=== PATIENT | female | born 1960 | race Caucasian/White ===

== ENCOUNTER 2017-04-22 07:19 | Day surgery (SDC) | payer OTHER ==
[2017-04-21 10:44] VITALS: BMI 26.4
[2017-04-22] MEDS ORDERED: BUPIVACAINE HCL/PF 2.5 MG/ML - 30 ML VIAL IJ ONE (09:20)
[2017-04-22] MEDS ORDERED: EPINEPHrine 1:1,000 1 MG/1 ML - 30ML VIAL (INJECTION) ONE (09:20)
--- NOTE | 2017-04-22 09:29 | HP ---
History & Physical Update - History History: No Change - Physical Physical: No Change - Assessment Assessment: No Change - Plan Plan: No Change (Here today for elective repair of her left knee pain. Planned procedure is LEFT knee arthroscopy and removal of loose bodies. Initial H&P is located in her paper chart)
[2017-04-22] MEDS ORDERED: methylPREDNISolone ACET (DEPO) 40 MG/1 ML VIAL ONE (11:41)
[2017-04-22] MEDS ORDERED: BUPIVACAINE HCL/PF 0.25% (2.5MG/ML) 10 ML VIAL IJ ONE (11:47)
[2017-04-22] MEDS ORDERED: methylPREDNISolone ACET (DEPO) 40 MG/1 ML VIAL NR ONE (11:47)
--- NOTE | 2017-04-22 12:02 | OP ---
Operative Note - Note: Operative Date: 04/22/17 Pre-Operative Diagnosis: Loose bodies left knee. Operation: Surgical arthroscopy left knee Findings: 1. Chondromalacia patellofemoral joint 2. Degenerative ACL Tourniquet Pressure: 250mmHg. Tourniquet Time: 29 mins. Post-Operative Diagnosis: Other (As above) Surgeon: Richie Azul Anesthesiologist/MEDIA MARKETING MANAGER: Issac Ramirez Anesthesia: Spinal Estimated Blood Loss (mls): 0 Fluid Volume Replaced (mls): 900 Operative Report Dictated: Yes
[2017-04-22] MEDS ORDERED: PROMETHAZINE HCL 25 MG/1 ML VIAL IVPB PRN (12:16)
[2017-04-22] MEDS ORDERED: oxyCODONE HCL 5 MG TABLET PO PRN (12:16)
[2017-04-22] MEDS ORDERED: ONDANSETRON 4 MG/2 ML VIAL IVPUSH PRN (12:16)
[2017-04-22] MEDS ORDERED: LACTATED RINGERS SOLUTION 1,000 ML IV SCH (12:30)
[2017-04-22] MEDS ORDERED: ONDANSETRON 4 MG/2 ML VIAL ONE (12:43)
[2017-04-22] MEDS ORDERED: oxyCODONE HCL 5 MG TABLET ONE (13:14)
[2017-04-22 14:58] VITALS: BP 110/70; PULSE 66; TEMP 97.8
--- NOTE | 2017-04-24 15:26 | OP ---
DATE OF OPERATION: 04/22/2017 SURGEON: Richie Azul MD AUTOMATION CLERK: None. PREOPERATIVE DIAGNOSIS: Loose bodies, left knee. POSTOPERATIVE DIAGNOSES: 1. Chondromalacia, patellofemoral joint. 2. Degenerative anterior cruciate ligament. SURGICAL PROCEDURE: 1. Surgical arthroscopy, left knee. 2. Debridement and chondroplasty, patellofemoral joint. ANESTHESIA: Spinal and sedation. POSITION: Supine. INCISION: Standard anteromedial and anterolateral arthroscopy portals. ESTIMATED BLOOD LOSS: Minimal. INTRAVENOUS FLUID: 900 mL crystalloid. SPECIMENS: None. DRAINS: None. COMPLICATIONS: None. URINE OUTPUT: None. BACTERIOLOGY: None. TRANSFUSIONS: None. CLOSURE: 3-0 nylon. INDICATIONS: The patient is a 56-year-old female who is indicated for surgical arthroscopy of the left knee with debridement of loose bodies in order to improve motion and mobilization, to prevent the complications associated with a sedentary lifestyle, and to minimize onset of arthritis secondary to third body wear. Patient was identified in the holding area by her arm band. A long discussion was held with the patient in the presence of her son regarding the risks, benefits, and alternatives of the above-named procedure. Risks include but are not limited to : Pain, bleeding, infection, damage to the surrounding structures (including nerves, blood vessels, skin, ligaments, tendons, and bone), wound complications, need for further surgery, blood clots, myocardial infarction, pulmonary embolism, anesthesia complications, compartment syndrome, limb loss, limp, loss of function, progression of arthritis, and . Benefits as mentioned above. Alternatives include no surgery. All questions were answered. The patient understood and agreed to the procedure. Informed consent was obtained, witnessed, and verified. The patient 's correct operative limb--that of the left lower extremity--was marked, and the patient was taken to the operating room after being seen by the anesthesia nursing staff. PROCEDURE: The patient was brought in to the operating room, placed on the OR table, and secured with a safety strap. Consent and the operative site was again verified with the patient and nursing and anesthesia staff. Anesthesia was then administered without complications, including IV antibiotics. Timeout was done, led by me, the attending surgeon. The patient was positioned with all bony prominences well padded, and the tourniquet was placed proximally on the left thigh and set to 250 mmHg. The distal thigh was then secured in a leg bah. The operative site was then prepped and draped in standard sterile fashion. A timeout was again done. The limb was exsanguinated using an Esmarch, the tourniquet was inflated, and the case began. Standard anterolateral arthroscopy portal was made using an 11 blade. Next, the trocar was introduced into the middle of the knee and then into the suprapatellar pouch as the knee was fully extended. With the arthroscope in place, the knee was insufflated with normal saline solution containing epinephrine to aid with hemostasis. It was immediately obvious that there was marked chondromalacia of the patellofemoral joint. The sclerotic bony surface of the articular patella could be visualized. There were numerous fronds of degenerative cartilage lining the margin of the patella. The trochlear sulcus was also degenerative. The arthroscope was then delivered into the medial gutter of the knee, where no loose bodies were seen, and then into the medial joint space, where once again no loose bodies were seen. Grade 2 chondromalacia of the medial femoral condyle was identified. At this point in time, a standard medial arthroscopy portal was triangulated using an 18-gauge needle, and then an 11 blade for the incision. A trocar was used to facilitate entry into the medial joint space. There was no medial meniscus tear visualized. Next, the arthroscope was moved to the middle of the knee, where the ACL was found to be degenerative. A standard 3.5-mm shaver was used to debride any loose soft tissue fibers that were found floating within the middle of the knee. Again, no loose bodies were seen. Next, the arthroscope was transferred into the lateral compartment of the knee, where upon the cartilage of the lateral compartment was intact on both sides of the joint, as was the meniscus. Once again no loose bodies were seen. It should be stated that the popliteal fossa was repeatedly palpated so as to dislodge and push any loose bodies into the visual field during the arthroscopy, but no loose bodies were actively seen. The arthroscope was then delivered into the lateral gutter of the knee, where once again no loose bodies were seen, and finally back up to the suprapatellar pouch. A 3.5-mm shaver was used to gently debride the fronds and fibrillations of degenerative cartilage that were seen within the patellofemoral joint. Great care was taken not to debride any healthy-looking articular cartilage. The knee was thoroughly irrigated with 3 to 4 L of fluid. Hemostasis was assured throughout the case. Inflow suction was then clamped and outflow suction was used to drain the knee. All arthroscopy instrumentation was then removed. A 5 mL injection consisting of 4 mL of 0.25% Marcaine and 1 mL of Depo-Medrol 40 mg/mL was injected into the lateral compartment of the left knee. The wound was closed primarily using 3-0 nylon suture in [id number] fashion. A sterile compressive dressing was applied. Tourniquet was then released at a final time of 29 minutes. The sponge and needle counts were correct at the end of the case. I, the attending surgeon, was present and scrubbed throughout the case. The patient was then transferred without incident or complications to the recovery room in stable condition, having tolerated the procedure well. MD APOLONIA [id number] [email or web address]
== END 2017-04-22 15:05 | disposition home or self-care (01) ==
LOC: FASU 07:19
PROVIDERS: ATTEND Orthopaedic Surgery Adult Reconstructive Orthopaedic Surgery
PROC: 0SBD4ZZ Excision of Left Knee Joint, Percutaneous Endoscopic Approach (ICD-10-PCS; principal; 2017-04-22 11:22)
DX: M22.42 Chondromalacia patellae, left knee (principal); M23.612 Other spontaneous disruption of anterior cruciate ligament of left knee
CPT/HCPCS: 94760

== ENCOUNTER 2019-03-02 05:09 | Emergency (ER) | payer OTHER ==
[2019-03-02] MEDS ORDERED: KETOROLAC TROMETHAMINE 15 MG/ML VIAL IVPUSH ONE (05:37)
[2019-03-02] MEDS ORDERED: SODIUM CHLORIDE 1,000 ML IV STA (05:37)
[2019-03-02] MEDS ORDERED: ACETAMINOPHEN 1000 MG/100 ML VIAL (NON FORMULARY) IVPB ONE (05:38)
[2019-03-02 05:43] VITALS: BMI 34.7
--- NOTE | 2019-03-02 05:53 | PDOC ---
History of Present Illness - General Stated Complaint: RIGHT LOWER BACK PAIN Time Seen by Provider: 03/02/19 05:18 History Source: Patient Exam Limitations: No Limitations - History of Present Illness Initial Comments: Pt is a 58 yo F, with no significant PMH, who is presenting with complaints of R groin and R flank pain x5 days. Pt states her symptoms started in her R groin , and has been intermittent, now radiating towards the R flank. Pt has experienced nausea, but no vomiting. Pt has taken motrin and ibuprofen with minimal relief. Pt denies any fevers/chills, headache, vision changes, syncope, chest pain, palpitations, SOB, vomiting, urinary symptoms, diarrhea/constipation , or leg swelling. Allergies: NKDA PCP: Dr. Navarrete Social: Pt denies any cigarette, alcohol, or drug use. Pt denies any recent travel or sick contacts. Surgical: C-sections Family: no relevant history. 03/02/19 05:49 03/02/19 05:55 Past History - Travel Traveled outside of the country in the last 30 days: No Close contact w/someone who was outside of country & ill: No - Past Medical History Allergies/Adverse Reactions: Allergies Allergy/AdvReac Type Severity Reaction Status Date / Time No Known Drug Allergies Allergy Verified 03/02/19 05:29 Home Medications: Ambulatory Orders NK [No Known Home Medication] 04/21/17 Anemia: No Asthma: No Cancer: No Cardiac Disorders: No CVA: No COPD: No CHF: No Dementia: No Diabetes: No GI Disorders: No Disorders: No HTN: No Hypercholesterolemia: Yes (NOT ON MEDS,MILD) Liver Disease: No Seizures: No Thyroid Disease: No - Surgical History Abdominal Surgery: No Appendectomy: No Cardiac Surgery: No Cholecystectomy: No Lung Surgery: No Neurologic Surgery: No Orthopedic Surgery: Yes - Psycho Social/Smoking Cessation Hx Smoking History: Never smoked Have you smoked in the past 12 months: No Hx Alcohol Use: No Drug/Substance Use Hx: No Substance Use Type: None Hx Substance Use Treatment: No Abd/GI Specific PMHX - Complaint Specific PMHX Colitis: No Diverticulitis: No Gall Bladder Disease: No GERD: No Hepatitis: No Irritable Bowel Synd (IBS): No Pancreatitis: No GI Ulcer Disease: No Review of Systems - Review of Systems Able to Perform ROS?: Yes Is the patient limited Nepali proficient: No Constitutional: Yes: Weight Stable. No: Chills, Diaphoresis, Fever, Loss of Appetite, Malaise, Weakness HEENTM: No: Recent change in vision, Nose Congestion, Throat Pain, Throat Swelling, Difficulty Swallowing Respiratory: No: Cough, Orthopnea, Shortness of Breath Cardiac (ROS): No: Chest Pain, Edema, Irregular Heart Rate, Lightheadedness, Palpitations, Syncope, Chest Tightness ABD/GI: Yes: See HPI, Nausea. No: Abdominal Distended, Constipated, Diarrhea, Poor Appetite, Poor Fluid Intake, Vomiting, Abdominal cramping : Yes: See HPI, Flank Pain. No: Burning, Dysuria, Frequency, Hematuria, Pain , Urgency Musculoskeletal: No: Back Pain, Muscle Pain, Muscle Weakness Integumentary: No: Rash Neurological: No: Headache, Numbness, Weakness, Unsteady Gait, Dizziness Psychiatric: No: Sleep Pattern Change, Change in Appetite Endocrine: No: Increased Urine, Change in Weight Hematologic/Lymphatic: No: Anemia, Blood Clots, Easy Bleeding, Easy Bruising All Other Systems: Reviewed and Negative *Physical Exam - Vital Signs Last Vital Signs Temp Pulse Resp BP Pulse Ox 98.4 F 92 H 16 186/102 H 99 03/02/19 05:32 03/02/19 05:32 03/02/19 05:32 03/02/19 05:32 03/02/19 05:32 - Physical Exam HTN, pt afebrile. Pt appears distressed, holding R flank, ambulating into ER with assistance. Obese body habitus. Pt alert and oriented x3. shipping lead person generally intact, muscular strength and sensation intact. No midline spinal tenderness, step-offs, or crepitus. Head normocephalic, atraumatic. Eyes PERRLA, EOMI. Oropharynx without erythema or exudates, no LAD b/l. No nasal congestion. Hearing intact. Clear heart sounds, S1/S2, no JVD, b/l pedal edema, or heart murmur. Clear lung sounds, no respiratory distress, wheezes, crackles, or accessory muscle use. No reproducible abdominal or CVA tenderness to palpation, no rebound, no guarding. Abdomen soft, non-distended, and with normoactive bowel sounds. Skin without jaundice or rash. 03/02/19 06:02 ED Treatment Course - LABORATORY CBC & Chemistry Diagram: 03/02/19 05:46 03/02/19 05:46 Medical Decision Making - Medical Decision Making Pt was seen at bedside, also will be seen by attending Dr. Doherty. Pt presenting with R groin and R flank pain. No reproducible tenderness on exam, less likely abdominal pathology such as appendicitis or MSK pain. Pt holding R flank, likely colic from nephrolithiasis. Will evaluate for infection, UTI, nephrolithiasis, colitis, diverticulitis. Provided 1 L IV NS, ofirmev, and 15 mg IV toradol for improvement of likely renal colic. Will continue to reassess pt and monitor for symptomatic improvement. 03/02/19 06:05 CBC generally WNL Ordered spiral CT 03/02/19 06:11 CMP WNL, kidney function normal Serum negative Pt taken for CT scan 03/02/19 06:41 UA and urine culture pending in lab. Pt pending CT and read Pt signed out to day team 03/02/19 06:48 Discharge - Discharge Information Problems reviewed: Yes Clinical Impression/Diagnosis: Right flank pain Condition: Stable - Follow up/Referral - Patient Discharge Instructions - Post Discharge Activity
[2019-03-02] MEDS ORDERED: ACETAMINOPHEN INJECTION 100 ML IVPB ONE (05:56)
[2019-03-02 05:58] LABS: BASO % 0.8 % (0-2.0); EOS % 2.5 % (0-4.5); HEMATOCRIT 45.3 % (32.4-45.2); HEMOGLOBIN 15.2 GM/dL (10.7-15.3); LYMPH % 34.5 % (8-40); MCH 28.9 pg (25.7-33.7); MCHC 33.5 g/dl (32.0-36.0); MEAN CELL VOLUME 86.4 fl (80-96); MEAN PLT VOLUME 8.3 fl (7.5-11.1); MONO % 7.8 % (3.8-10.2); NEUT % 54.4 % (42.8-82.8); PLATELET COUNT 262 K/MM3 (134-434); RBC 5.25 M/mm3 (3.60-5.2); RDW 13.7 % (11.6-15.6); WHITE BLOOD COUNT 7.4 K/mm3 (4.0-10.0)
[2019-03-02] MEDS ORDERED: KETOROLAC TROMETHAMINE 15 MG/ML VIAL ONE (05:58)
[2019-03-02 06:23] LABS: BILIRUBIN,TOTAL 0.4 mg/dL (0.2-1); BLOOD UREA NITROGEN 9.3 mg/dL (7-18); CALCIUM 9.3 mg/dL (8.5-10.1); CREATININE 0.8 mg/dL (0.55-1.3); POTASSIUM 4.2 mmol/L (3.5-5.1); TOT PROT 7.6 g/dl (6.4-8.2)
--- NOTE | 2019-03-02 06:50 | PDOC ---
Attending Attestation - Resident Resident Name: Arlene Sue - ED Attending Attestation I have performed the following: I have examined & evaluated the patient, The case was reviewed & discussed with the resident, I agree w/resident's findings & plan, Exceptions are as noted - HPI HPI: 03/02/19 07:34 See resident HPI - Physicial Exam PE: 03/02/19 07:34 Agree with exam as documented by resident - Medical Decision Making 03/02/19 07:34 Hx highly suspicious for nephrolithiasis f/u labs, ua, spiral ct analgesia dispo per clinical course
[2019-03-02 07:03] LABS: URINE APPEARANCE CLEAR; URINE BILIRUBIN NEGATIVE (NEGATIVE); URINE COLOR YELLOW; URINE GLUCOSE (UA) NEGATIVE (NEGATIVE); URINE KETONE NEGATIVE (NEGATIVE); URINE LEUK ESTERASE NEGATIVE (NEGATIVE); URINE NITRITE NEGATIVE (NEGATIVE); URINE PROTEIN NEGATIVE (NEGATIVE); URINE UROBILINOGEN 0.2 mg/dL (0.2-1.0)
--- NOTE | 2019-03-02 07:10 | PDOC ---
ED Treatment Course - LABORATORY CBC & Chemistry Diagram: 03/02/19 05:46 03/02/19 05:46 - Medications Given in the ED: ED Medications Discontinued Medications Generic Name Dose Route Start Last Admin Trade Name Christoph PRN Reason Stop Dose Admin Acetaminophen 1,000 mg 03/02/19 05:38 03/02/19 06:04 Ofirmev Injection - IVPB 03/02/19 05:39 1,000 mg ONCE ONE Administration Sodium Chloride 1,000 mls @ 1,000 mls/hr 03/02/19 05:37 03/02/19 06:03 Normal Saline - IV 03/02/19 06:36 1,000 mls/hr ASDIR STA Administration Ketorolac Tromethamine 15 mg 03/02/19 05:37 03/02/19 06:04 Toradol Injection - IVPUSH 03/02/19 05:38 15 mg ONCE ONE Administration Medical Decision Making - Medical Decision Making Pt signed out to me by Dr. Sue, appreciate prior note. 58 year old female with above PMH presented to ED for R groin pain radiating to right flank x5 days. PSH: x3 Initial Vital Signs Temp Pulse Resp BP Pulse Ox 98.4 F 92 H 16 186/102 H 99 03/02/19 05:32 03/02/19 05:32 03/02/19 05:32 03/02/19 05:32 03/02/19 05:32 Afebrile. No tachycardia. No tachypnea. Hypertensive. No hypoxia on room air. ED Medications Discontinued Medications Generic Name Dose Route Start Last Admin Trade Name Christoph PRN Reason Stop Dose Admin Acetaminophen 1,000 mg 03/02/19 05:38 03/02/19 06:04 Ofirmev Injection - IVPB 03/02/19 05:39 1,000 mg ONCE ONE Administration Sodium Chloride 1,000 mls @ 1,000 mls/hr 03/02/19 05:37 03/02/19 06:03 Normal Saline - IV 03/02/19 06:36 1,000 mls/hr ASDIR STA Administration Ketorolac Tromethamine 15 mg 03/02/19 05:37 03/02/19 06:04 Toradol Injection - IVPUSH 03/02/19 05:38 15 mg ONCE ONE Administration Pt reported much improvement of pain. Laboratory Last Values WBC 7.4 K/mm3 (4.0-10.0) 03/02/19 05:46 RBC 5.25 M/mm3 (3.60-5.2) H 03/02/19 05:46 Hgb 15.2 GM/dL (10.7-15.3) 03/02/19 05:46 Hct 45.3 % (32.4-45.2) H 03/02/19 05:46 MCV 86.4 fl (80-96) 03/02/19 05:46 MCH 28.9 pg (25.7-33.7) 03/02/19 05:46 MCHC 33.5 g/dl (32.0-36.0) 03/02/19 05:46 RDW 13.7 % (11.6-15.6) 03/02/19 05:46 Plt Count 262 K/MM3 (134-434) 03/02/19 05:46 MPV 8.3 fl (7.5-11.1) 03/02/19 05:46 Absolute Neuts (auto) 4.0 K/mm3 (1.5-8.0) 03/02/19 05:46 Neutrophils % 54.4 % (42.8-82.8) 03/02/19 05:46 Lymphocytes % 34.5 % (8-40) 03/02/19 05:46 Monocytes % 7.8 % (3.8-10.2) 03/02/19 05:46 Eosinophils % 2.5 % (0-4.5) 03/02/19 05:46 Basophils % 0.8 % (0-2.0) 03/02/19 05:46 Nucleated RBC % 0 % (0-0) 03/02/19 05:46 Sodium 142 mmol/L (136-145) 03/02/19 05:46 Potassium 4.2 mmol/L (3.5-5.1) 03/02/19 05:46 Chloride 107 mmol/L (98-107) 03/02/19 05:46 Carbon Dioxide 27 mmol/L (21-32) 03/02/19 05:46 Anion Gap 8 MMOL/L (8-16) 03/02/19 05:46 BUN 9.3 mg/dL (7-18) 03/02/19 05:46 Creatinine 0.8 mg/dL (0.55-1.3) 03/02/19 05:46 Est GFR (CKD-EPI)AfAm 95.52 03/02/19 05:46 Est GFR (CKD-EPI)NonAf 82.42 03/02/19 05:46 Random Glucose 109 mg/dL (74-106) H 03/02/19 05:46 Calcium 9.3 mg/dL (8.5-10.1) 03/02/19 05:46 Total Bilirubin 0.4 mg/dL (0.2-1) 03/02/19 05:46 AST 15 U/L (15-37) 03/02/19 05:46 ALT 33 U/L (13-61) 03/02/19 05:46 Alkaline Phosphatase 105 U/L (45-117) 03/02/19 05:46 Total Protein 7.6 g/dl (6.4-8.2) 03/02/19 05:46 Albumin 4.0 g/dl (3.4-5.0) 03/02/19 05:46 Serum , Qual Negative 03/02/19 05:46 Urine Color Yellow 03/02/19 06:45 Urine Appearance Clear 03/02/19 06:45 Urine pH 7.0 (5.0-8.0) D 03/02/19 06:45 Ur Specific Elton 1.005 (1.010-1.035) L 03/02/19 06:45 Urine Protein Negative (NEGATIVE) 03/02/19 06:45 Urine Glucose (UA) Negative (NEGATIVE) 03/02/19 06:45 Urine Ketones Negative (NEGATIVE) 03/02/19 06:45 Urine Blood Negative (NEGATIVE) 03/02/19 06:45 Urine Nitrite Negative (NEGATIVE) 03/02/19 06:45 Urine Bilirubin Negative (NEGATIVE) 03/02/19 06:45 Urine Urobilinogen 0.2 mg/dL (0.2-1.0) 03/02/19 06:45 Ur Leukocyte Esterase Negative (NEGATIVE) 03/02/19 06:45 No leukocytosis. No DEBBI. No electrolyte imbalances. No UTI. No hematuria. No proteinuria. Pending CT report. 03/02/19 07:19 CT report: Comments: Gama Santana MD wrote on Dec 13th, 2019 at 07:15 AM: Referring Physician: BIBI MOROCHO Patient Name: JESUS GUY THIS IS A PRELIMINARY REPORT FROM [facility] DATE OF SERVICE: 2019-03-02 06:37:32 IMAGES: [id number] EXAM: CT abdomen and pelvis without HISTORY: Rule out stones COMPARISON: None. FINDINGS: Lung bases are clear. The visualized cardiac chambers are normal size and configuration. Right hepatic lobe hypodensity could represent a cyst. 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 Normal unenhanced gallbladder , pancreas, spleen, adrenal glands . The stomach and abdominal small and large bowel are normal. There is no aortic aneurysm. There is no significant retroperitoneal lymphadenopathy. The pelvic small and large bowel are normal. The appendix is normal. The uterus and adnexal structures are normal. Urinary bladder is unremarkable. There is no pelvic free fluid. No discrete One or more of the following dose reduction techniques were used: automated exposure control, adjustment of the mA and/or kV according to patient size, use of iterative reconstructive technique. THIS DOCUMENT HAS BEEN ELECTRONICALLY SIGNED Avel Santana MD 03/02/2019 07:13 MILAGROS Leach Please call [facility] Machine Offbearer [phone] ([phone]) with questions. Gama Santana MD Imaging vice president education called to re-read scan and comment on suspected stone seen on image [id number]. Radiologist reported this is a uterine calcification, not a stone. 03/02/19 08:04 Vital Signs Temperature 98.0 F 03/02/19 07:58 Pulse Rate 79 03/02/19 07:58 Respiratory Rate 19 03/02/19 07:58 Blood Pressure 142/78 03/02/19 07:58 O2 Sat by Pulse Oximetry (%) 99 03/02/19 07:58 HTN improved with pain control. Pt is still afebrile. Results explained to patient and son at bedside. They expressed understanding. I recommended pt F/U with PCP and urology. They agreed with plan for care. Discharge - Discharge Information Problems reviewed: Yes Clinical Impression/Diagnosis: Right flank pain, Ectopic kidney Condition: Improved Disposition: HOME - Admission No - Follow up/Referral Referrals: Lilibeth Navarrete MD [Primary Care Provider] - Minesh Arthur MD [Staff Physician] - - Patient Discharge Instructions Additional Instructions: Follow up with your primary care doctor within 3 days regarding your Emergency Room visit. Your care is not complete until you follow up. 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 Follow up with a urologist within 3 days regarding your Emergency Room visit. Your care is not complete until you follow up. I have provided you with a referral. Drink lots of water to stay hydrated. Take ibuprofen over the counter for pain. Take as advised on labels. Take with food to avoid stomach irritation. If ibuprofen is not enough, you can add Tylenol over the counter. Take as advised on label. Tylenol and Ibuprofen are not the same medication and can be safely taken together. Return to the Emergency Department for increasing pain, vomiting, lightheadedness, chest pain, shortness of breath, fever, burning with urination , or any other new, worsening or concerning symptoms. - Post Discharge Activity Work/Back to School Note: Back to Work
[2019-03-02 08:00] VITALS: BP 142/78; PULSE 79; TEMP 98
--- NOTE | 2019-03-04 10:14 | EKG ---
Test Reason : Blood Pressure : / mmHG Vent. Rate : 077 BPM Atrial Rate : 077 BPM P-R Int : 128 ms QRS Dur : 090 ms QT Int : 404 ms P-R-T Axes : 054 084 070 degrees QTc Int : 457 ms NORMAL SINUS RHYTHM NORMAL ECG NO PREVIOUS ECGS AVAILABLE Confirmed by PAVEL PIPER, HARLEY ([id number]) on 03/04/2019 10:13:59 AM Referred By: Confirmed By:HARLEY ZHAO MD
== END 2019-03-02 08:05 | disposition home or self-care (01) ==
LOC: JER 05:09
PROC: 3E033NZ Introduction of Analgesics, Hypnotics, Sedatives into Peripheral Vein, Percutaneous Approach (ICD-10-PCS; principal; 2019-03-02)
PROC: 3E0333Z Introduction of Anti-inflammatory into Peripheral Vein, Percutaneous Approach (ICD-10-PCS; 2019-03-02)
DX: R10.31 Right lower quadrant pain (principal); E78.00 Pure hypercholesterolemia, unspecified
CPT/HCPCS: 36415; 74176-TC; 80053; 81003; 84703; 85025; 87086; 93005; 93010; 99282-25; J0131; J7030

== ENCOUNTER 2020-02-15 14:15 | Emergency (ER) | payer OTHER ==
[2020-02-15 14:28] VITALS: BP 149/76; BMI 27.3
[2020-02-15 15:49] VITALS: TEMP 98.9
[2020-02-15 16:03] VITALS: PULSE 100
== END 2020-02-15 16:11 | disposition home or self-care (01) ==
LOC: FER 14:15
DX: R09.81 Nasal congestion (principal); J06.9 Acute upper respiratory infection, unspecified
CPT/HCPCS: 71046-TC-FY; 99284-25; C9803; U0003